=== PATIENT | male | born 1930 | race Caucasian/White ===

== ENCOUNTER → 2019-11-18 | Emergency (ER) | payer OTHER ==
[~2019-11-18] VITALS: Ht 170.2 cm; Wt 70.8 kg
[~2019-11-18] MED LIST: GLYCOTROL CAPS1 EACH; XOPENEX0.63 MG/3 IH; ZITHROMAX TRI-500 MG PO
== END | disposition left against medical advice (07) ==
LOC: ER 09:04
DX: J11.1 Influenza due to unidentified influenza virus with other respiratory manifestations (principal); C95.90 Leukemia, unspecified not having achieved remission; B34.9 Viral infection, unspecified